=== PATIENT | female | born 1970 | race Two or more races ===

== ENCOUNTER 2018-09-19 05:07 | Day surgery (SDC) | payer OTHER ==
[2018-09-18 14:07] LABS: BASOPHILS # (AUTO) 0.1 X10'3 (0-0.2); BASOPHILS % (AUTO) 1.1 % (0-1); EOSINOPHILS # (AUTO) 0.1 X10'3 (0-0.9); EOSINOPHILS % (AUTO) 1.6 % (0-6); LYMPHOCYTES # (AUTO) 1.4 X10'3 (1.1-4.8); LYMPHOCYTES % (AUTO) 22.4 % (21-51); MEAN CORPUSCULAR HEMOGLOBIN 26.6 PG (27.0-31.0); MEAN CORPUSCULAR HGB CONC 32.7 % (33.0-36.5); MEAN CORPUSCULAR VOLUME 81.3 FL (78-98); MEAN PLATELET VOLUME 8.9 FL (7.4-10.4); MONOCYTES # (AUTO) 0.4 X10'3 (0-0.9); MONOCYTES % (AUTO) 5.9 % (2-12); NEUTROPHILS # (AUTO) 4.2 X10'3 (1.8-7.7); PRE OP HEMATOCRIT 35.8 % (35.0-45.0); PRE OP HEMOGLOBIN 11.7 g/dL (12.0-16.0); PRE OP PLATELET COUNT 322 X10'3 (140-440); RED BLOOD COUNT 4.41 X10'6 (4.20-5.60); RED CELL DISTRIBUTION WIDTH 20.4 % (11.5-14.5)
[2018-09-18 14:23] LABS: ALBUMIN 3.6 G/DL (3.4-5.0); ALBUMIN/GLOBULIN RATIO 0.9 (1.1-1.5); ALKALINE PHOSPHATASE 105 IU/L (46-116); BLOOD UREA NITROGEN 12 MG/DL (7-18); BUN/CREATININE RATIO 17.6 (6.6-38.0); CALCIUM 8.8 MG/DL (8.5-10.1); CHLORIDE 104 MMOL/L (99-107); CREATININE 0.68 MG/DL (0.40-0.90); PRE OP ANION GAP 12 (8-16); PRE OP AST 26 U/L (10-37); PRE OP BILIRUB, TOTAL 0.2 MG/DL (0.0-1.0); PRE OP GLUCOSE 133 MG/DL (70-104); PRE OP POTASSIUM 3.8 MMOL/L (3.4-5.1); PRE OP SODIUM 139 MMOL/L (135-145); TOTAL CARBON DIOXIDE 23.5 MMOL/L (24-32); TOTAL PROTEIN 7.4 G/DL (6.4-8.2); eGFR > 90 ML/MIN
[2018-09-18 14:25] LABS: ANISOCYTOSIS 2+; PLATELET ESTIMATE NORMAL; PRE OP ALT 86 U/L (30-65)
[2018-09-19] VITALS (10 sets, daily range): BP systolic 124–155; BP diastolic 78–95
[~2018-09-19] VITALS: Ht 165.1 cm; Wt 106.0 kg
[~2018-09-19 05:07] MED LIST: DICL-211 PO; DICY20TA14 PO; DULO60CA64 PO; FERR-116 PO; GABA-532 PO; MULT-269 PO; VITA1TAB20 PO; ringers solution, lacted 1,000 ML IV SCH
[2018-09-19] MEDS ORDERED: CLINDAmcin 900mg/NS 50ml IVPB 50 ML IV ONE (05:30)
[2018-09-19] MEDS ORDERED: famotidine 20mg tablet PO ONE (05:30)
[2018-09-19] MEDS ORDERED: LIDOcaine 1% (10mg/ml) 2ml vial ONE (05:47)
[2018-09-19] MEDS ORDERED: sevoflurane 250ml liquid IH ONE (07:07)
[2018-09-19] MEDS ORDERED: cloNIDine hcl/PF 100mcg/ml inj ONE (07:09)
[2018-09-19] MEDS ORDERED: midazolam 2 mg/2 ml injection ONE ×2 (07:11)
[2018-09-19] MEDS ORDERED: fentaNYL/PF 50MCG/1 ML 2ML syringe ONE ×2 (07:11→07:29)
[2018-09-19] MEDS ORDERED: dexamethasone sod phosphate 4mg/ml inj. ONE (07:35)
[2018-09-19] MEDS ORDERED: LIDOcaine 1%/PF 5ML 10 MG/ML VIAL ONE (07:35)
[2018-09-19] MEDS ORDERED: ondansetron/PF 4mg/2ml inj ONE (07:35)
[2018-09-19] MEDS ORDERED: ROPIVAcaine 0.5% (5mg/ml) 30ml vial ONE (07:35)
[2018-09-19] MEDS ORDERED: rocuronium 10mg/ml inj IV ONE (07:35)
[2018-09-19] MEDS ORDERED: propofol inj 20 ML IV ONE (07:35)
[2018-09-19] MEDS ORDERED: BUPIVAcaine/PF 2.5mg/ml (0.25%) 10ml vial ONE (08:02)
[2018-09-19] MEDS ORDERED: ringers solution, lacted 1,000 ML IV SCH (08:09)
[2018-09-19] MEDS ORDERED: morphine 4 MG/ML inj SYRINge IV PRN ×2 (08:10)
[2018-09-19] MEDS ORDERED: ondansetron/PF 4mg/2ml inj IV PRN (08:10)
[2018-09-19] MEDS ORDERED: meperidine/PF 25mg/ml syringe IV PRN ×3 (08:10)
[2018-09-19] MEDS ORDERED: proCHLORperazine 10 MG/2 ml inj IV PRN (08:10)
--- NOTE | 2018-09-19 08:25 | NUR ---
Received from OR via BED, accompanied by Anesthesiologist --CHIRAG- and report given by Anesthesiolgist. PATIENT A&OX4, DENIES PAIN, V/S WNL, NEUROVASCULAR CHECKS INTACT, 20G PIV RUE, SCD ON, LEFT SHOULDER DRESSING CDI WITH SLING.
[2018-09-19] MEDS ORDERED: neostigmine methylsulfate 1 MG/ML 10ml vial ONE (08:33)
[2018-09-19] MEDS ORDERED: glycopyrrolate 0.2mg/ml inj ONE (08:33)
[2018-09-19] MEDS ORDERED: phenylephrine 10mg/ml inj. ONE (08:34)
[2018-09-19] MEDS ORDERED: HYDROcodone/acetaminophen 10/325mg tab PO PRN (08:55)
--- NOTE | 2018-09-19 09:35 | NUR ---
PATIENT A&OX4, DENIES PAIN, V/S WNL, NEUROVASCULAR CHECKS INTACT, 20G PIV RUE D/C, SCD OFF, DRESSING TO LEFT SHOULDER CDI ELEVATED WITH ICEBAG APPLIED. I HAVE REVIEWED D/C INSTRUCTIONS WITH PATIENT AND FAMILY AND THEY HAVE VERBALIZED UNDERSTANDING. PATIENT D/C HOME WITH ALL BELONGINGS AND FAMILY GAVE TRANSPORT HOME.
== END 2018-09-19 09:35 | disposition home or self-care (01) ==
LOC: PAS 05:07
PROVIDERS: ATTEND Orthopaedic Surgery
DX: M75.42 Impingement syndrome of left shoulder (principal); M75.52 Bursitis of left shoulder; M25.712 Osteophyte, left shoulder; M65.812 Other synovitis and tenosynovitis, left shoulder; M19.012 Primary osteoarthritis, left shoulder; M19.011 Primary osteoarthritis, right shoulder; F32.9 Major depressive disorder, single episode, unspecified; E66.9 Obesity, unspecified; Z87.891 Personal history of nicotine dependence; Z98.84 Bariatric surgery status; Z68.38 Body mass index [BMI] 38.0-38.9, adult; Z88.0 Allergy status to penicillin; Z88.5 Allergy status to narcotic agent; Z79.2 Long term (current) use of antibiotics; Z79.1 Long term (current) use of non-steroidal anti-inflammatories (NSAID); Z79.891 Long term (current) use of opiate analgesic; Z79.899 Other long term (current) drug therapy; Z98.890 Other specified postprocedural states; Z84.1 Family history of disorders of kidney and ureter
CPT/HCPCS: 29823; 29826; 36415; 64450; 80053; 82948; 85025; 93005; A6449; J0735; J1100; J2001; J2250; J2370; J2405; J2704; J2710; J3010; J3490; J7120; A4565; A7000; J2795; J7030